=== PATIENT | female | born 1960 | race Caucasian/White ===

== ENCOUNTER 2022-08-12 18:12 | Emergency (ER) | payer OTHER, SELFPAY ==
--- NOTE | ~2022-08-12 | XR_ITS ---
EXAMINATION: XR abdomen/kub 1V DATE: 08/12/2022 18:59 INDICATION: Diffuse lower abdominal pain TECHNIQUE: A supine view of the abdomen was obtained. COMPARISON: None. FINDINGS: Moderate amount of gas in the stomach and small amount of gas scattered throughout the colon. No dila rebeka gas-filled loops of bowel to suggest obstruction. No evident urolithiasis. Moderate to severe low er lumbar facet osteoarthritis. Sclerotic likely bone island at the right femoral neck. IMPRESSION: 1. Normal bowel gas pattern. Reviewed, dictated and finalized at location A. [employer]
[2022-08-12 18:27] VITALS: BP 143/96; PULSE 87; RESP 24; TEMP 36.1; O2SAT 100
[2022-08-12] MEDS: ONDANSETRON HCL ODT 4 MG TABLET PO (18:41)
--- NOTE | 2022-08-12 18:48 | ED.NAVMDI ---
HPI - Nausea/Vomiting/Diarrhea General Chief complaint: Nausea/Vomiting/Diarrhea Stated complaint: Abdominal Pain Time Seen by Provider: 08/12/22 19:10 Source: patient and RN notes reviewed Mode of arrival: ambulatory Limitations: no limitations History of Present Illness HPI Narrative: 62-year-old female presenting for complaint of nausea, vomiting and abdominal pain; onset today. Endorses abdominal pain is across the middle of the abdomen and to the lower back. She endorses bloating, nausea and decreased appetite for few days. about 5 days ago she had watery diarrhea and then has had small firm stools since then. She states yesterday she fell her abdomen tightness. She denies fever, shortness of breath or chest pain. She has taken Pepto-Bismol, Zantac, and Gas-X for symptoms. She has a history of reflux, hypertension and depression. She denies any abdominal surgeries. She drinks at least half a bottle of white wine per day. Related Data Home Medications Medication Instructions Recorded Confirmed amlodipine 5 mg tablet 5 mg PO DAILY 08/12/22 08/12/22 lisinopril 10 mg tablet 10 mg PO DAILY 08/12/22 08/12/22 progesterone micronized 200 mg 200 mg PO DAILY 08/12/22 08/12/22 capsule venlafaxine 75 mg capsule,extended 75 mg PO DAILY 08/12/22 08/12/22 release 24 hr Allergies Allergy/AdvReac Type Severity Reaction Status Date / Time No Known Allergies Allergy Verified 08/12/22 18:20 Review of Systems Review of Systems: CONSTITUTIONAL: Denies body aches, fever, chills ENT: Denies rhinorrhea, congestion CARDIOVASCULAR: Denies chest pain, palpitations, or edema. RESPIRATORY: Denies cough or dyspnea. GASTROINTESTINAL: Endorses abdominal pain, nausea, vomiting Denies hematochezia, melena, hematemesis GENITOURINARY: Denies dysuria, hematuria, or CVA tenderness. SKIN: Denies rash, itching, or wounds. MUSCULOSKELETAL: Denies back pain, joint pain, or myalgia. NEUROLOGIC: Denies headache, numbness, tingling, or weakness. All systems reviewed & are unremarkable except as noted in HPI and below PMFSH Comments At time of signature, I have reviewed and agree with nursing past medical, surgical, social and family history unless otherwise noted. Please see nursing chart for further information. There is no relevant family history pertinent to the presenting complaint Exam Narrative: GENERAL: ill-appearing, no acute distress. EYES: EOMI. Conjunctivae normal. ENT: Mucous membranes pink and moist. CHEST: Clear to auscultation. HEART: Regular rate and rhythm. No murmur appreciated. Normal peripheral pulses. ABDOMEN: abd soft, nondistended, normal active bowel sounds. Generalized tender abdomen; No guarding, rebound tenderness, asymmetry EXTREMITIES: Normal range of motion. No edema. SKIN: Warm, dry, no rash. Capillary refill normal. Normal skin turgor. NEURO: Alert and oriented x3. Course Course Emergency Course: Patient is aware of diagnosis, understands and agrees to treatment plan. Anticipatory guidance given. Portions of this record may have been created with voice recognition software Level of Care: Express Care Visit Vital Signs Vital signs: Vital Signs Temperature 96.9 F L 08/12/22 18:27 Pulse Rate 87 08/12/22 18:27 Respiratory Rate 24 H 08/12/22 18:27 Blood Pressure 143/96 H 08/12/22 18:27 Pulse Oximetry 100 08/12/22 18:27 Oxygen Delivery Room Air 08/12/22 18:27 Temperature 96.9 F L 08/12/22 18:27 Pulse Rate 87 08/12/22 18:27 Respiratory Rate 24 H 08/12/22 18:27 Blood Pressure 143/96 H 08/12/22 18:27 Pulse Oximetry 100 08/12/22 18:27 Oxygen Delivery Room Air 08/12/22 18:27 Transfer Transfered to: [place] Transportation: Other (private vehicle) Transfer rationale: Pt is agreeable to transfer. Requests transfer to [facility] via private vehicle. Risks of transportation reviewed with pt including injury, worsening of condition and d
== END 2022-08-12 19:40 | disposition short-term general hospital (02) ==
PROVIDERS: Emergency Provider Nurse Practitioner Family
DX: R10.30 Lower abdominal pain, unspecified (principal); I10 Essential (primary) hypertension; F41.9 Anxiety disorder, unspecified; F32.A Depression, unspecified
CPT/HCPCS: 74018; 87804; 99213; A9270; G0463

== ENCOUNTER 2022-08-12 20:01 | Observation (INO) | payer OTHER, SELFPAY ==
[2022-08-12] VITALS (9 sets, daily range): BP systolic 149–161; BP diastolic 88–92; PULSE 88; RESP 22; O2SAT 96–100
--- NOTE | ~2022-08-12 | CT_ITS ---
EXAMINATION: CT abdomen pelvis w con INDICATION: Low abdominal pain, leukocytosis TECHNIQUE: Computed tomographic images of the abdomen and pelvis were obtained after the administrati on of 100 cc of Omnipaque 350 intravenous contrast. The dose-length product (DLP) was 210.75 mGy-cm. Automated exposure control and iterative reconstruction technique were employed. COMPARISON: None available FINDINGS: The lung bases are clear. The heart size is normal. There is a small sliding hiatal hernia. There is focal fatty infiltration of the liver near the ligamentum teres. There is a 6 mm cyst of th e right hepatic lobe. The spleen, pancreas, gallbladder, and adrenal glands are normal. The kidneys a re unremarkable. There are appendicoliths in the dilated appendix which measures up to 1.5 cm. There is edematous stranding of the periappendiceal fat without evidence of perforation or abscess. No path ologically enlarged abdominal or pelvic lymph nodes are identified. There is no free intraperitoneal gas or evidence of bowel obstruction. There is severe lumbar spondylosis at L5-S1. IMPRESSION: 1. Acute appendicitis without perforation or abscess. Reviewed, dictated and finalized at location A. [employer]
[2022-08-12 20:25] LABS: Basophils Absolute Auto 0.1 K/mm3 (0.0-0.1); Basophils Percent Auto 0.5 % (0.2-1.2); Hematocrit 42.5 % (37.0-47.0); Hemoglobin 14.7 g/dL (12.0-15.0); Immature Granulocyte Absolute 0.11 K/mm3 (0.00-0.031); Immature Granulocyte Percent A 0.6 % (0-0.5); Lymphocytes Absolute Auto 0.77 K/mm3 (0.9-3.2); Lymphocytes Percent Auto 4.2 % (18.3-44.2); Mean Corpuscular HGB Conc 34.6 g/dl (32-36); Mean Corpuscular Hemoglobin 33.8 pg (26-34); Mean Corpuscular Volume 97.7 fl (80-100); Mean Platelet Volume 9.9 fl (7.4-10.4); Monocytes Percent Auto 10.7 % (2.6-8.5); Neutrophils Absolute Auto 15.5 K/mm3 (1.3-6.7); Platelet Count Result 247 k/mm3 (150-375); Red Blood Count 4.35 M/mm3 (4.2-5.4); Red Cell Distribution Width 12.7 % (11.5-14.5); White Blood Count 18.4 K/mm3 (4.5-10.0)
[2022-08-12 20:38] LABS: Alanine Aminotransferase 23 U/L (6-35); Albumin Level 4.5 g/dL (3.5-5.1); Alkaline Phosphatase 51 U/L (38-126); Anion Gap 11 mmol/L (8-16); Aspartate Amino Transferase 36 U/L (14-36); Bilirubin,Total 0.9 mg/dL (0.2-1.3); Blood Urea Nitrogen 11 mg/dL (7-17); Calcium 8.8 mg/dL (8.4-10.2); Carbon Dioxide 21 mmol/L (22-30); Chloride 96 mmol/L (98-107); Estimated CRCL calculation 67 ml/min; Estimated Glomerular Filt Rate > 60; Glucose 131 mg/dL (65-110); Lipase 40 U/L (23-300); Potassium 4.2 mmol/L (3.4-5.0); Sodium 128 mmol/L (137-145)
[2022-08-12 22:23] LABS: Add Urine Microscopic? YES; Appearance Urine Clear (Clear); Bilirubin Urine Negative (Negative); Blood Urine 2+ (Negative); Color Urine Light Yellow (Yellow); Glucose Urine UA Negative (Negative); Ketones Urine 3+ mg/dL (Negative); Leukocyte Esterase Ur Negative LEU/UL (Negative); Nitrate Urine Negative (Negative); Protein Urine Negative (Negative); Specific Grav Ur 1.025 (1.001-1.035); Urobilinogen Urine 0.2 mg/dL (<2.0)
[2022-08-13] VITALS (28 sets, daily range): BP systolic 107–150; BP diastolic 57–95; PULSE 73–103; RESP 9–18; TEMP 36.8–37.5; O2SAT 94–100; BMI 22.6
[2022-08-13] MEDS: MORPHINE SULFATE (*CRX) 4 MG/ML INJ IV PUSH ×3 (00:05→07:39)
--- NOTE | 2022-08-13 00:10 | ED.ABDPAIN ---
HPI - Abdominal Pain General Chief Complaint: Abdominal Pain Stated Complaint: abd pain/ also her back Time Seen by Provider: 08/12/22 23:21 History of Present Illness HPI narrative: Patient is a 62-year-old female who presents ER with abdominal pain as well as back pain. Ongoing since 08/11/2022. Aching diffuse pain that began epigastrium. Unsure if it is radiating into her back but she has discomfort with movement. She reports chronic diarrhea. Feels like she needs to the bathroom but cannot. No belching/nausea/vomiting. No history of bowel obstruction. She said chest pain or chest pressure. No improvement with home ibuprofen. Related Data Home Medications Medication Instructions Recorded Confirmed amlodipine 5 mg tablet 5 mg PO DAILY 08/12/22 08/12/22 lisinopril 10 mg tablet 10 mg PO DAILY 08/12/22 08/12/22 progesterone micronized 200 mg 200 mg PO DAILY 08/12/22 08/12/22 capsule venlafaxine 75 mg capsule,extended 75 mg PO DAILY 08/12/22 08/12/22 release 24 hr Allergies Allergy/AdvReac Type Severity Reaction Status Date / Time No Known Allergies Allergy Verified 08/12/22 18:20 Review of Systems Review of Systems: All systems reviewed & are unremarkable except as noted in HPI and below Constitutional: Constitutional: Denies chills, Denies fatigue and Denies fever(s) ENT: Denies nasal congestion and Denies sore throat Cardiovascular: Cardiovascular: Denies chest pain, Denies rapid heart rate and Denies radiating jaw, neck or arm pain Respiratory: Respiratory: Denies cough and Denies dyspnea Gastrointestinal: Gastrointestinal: Reports abdominal pain, Reports diarrhea (Chronic), Denies nausea and Denies vomiting Genitourinary: Genitourinary: Denies hematuria, Denies dysuria and Denies flank pain Musculoskeletal: Musculoskeletal: Reports back pain, Denies myalgias and Denies arthralgias [facility] Past Medical History Medical History (Updated 08/13/22 @ 00:13 by Enrique Charles MD) Hypertension Surgical History Surgical History (Updated 08/13/22 @ 00:13 by Enrique Charles MD) No pertinent past surgical history Social History Social History (Updated 08/13/22 @ 00:14 by Enrique Charles MD) Smoking status: Never smoker Exam Narrative: GENERAL: Uncomfortable appearing, well-nourished, and in no acute distress. HEAD: Normocephalic, atraumatic. EYES: PERRL and EOMI. CHEST: Clear to auscultation. No respiratory distress. HEART: Regular rate and rhythm. Normal peripheral pulses. ABDOMEN: Soft, mild diffuse discomfort without rebound or guarding, nondistended. EXTREMITIES: Normal range of motion. No edema. SKIN: Warm, dry, no rash. NEURO: Alert and oriented x3. PSYCH: Normal mood and affect. Course Course Emergency Course: Discussed case with general surgery related admit to their service. Patient receiving Zosyn and morphine. Vital Signs Vital signs: Vital Signs Pulse Rate 88 08/12/22 20:14 Respiratory Rate 22 H 08/12/22 20:14 Blood Pressure 149/91 H 08/12/22 20:14 Pulse Oximetry 100 08/12/22 20:14 Pulse Rate 88 08/12/22 20:14 Respiratory Rate 22 H 08/12/22 20:14 Blood Pressure 149/91 H 08/12/22 20:14 Pulse Oximetry 100 08/12/22 20:14 MDM - Abdominal Pain Lab Data 08/12/22 20:17 08/12/22 20:17 Labs: Lab Results 08/12/22 08/12/22 08/12/22 Range/Units 20:17 20:17 22:17 WBC 18.4 H (4.5-10.0) K/mm3 RBC 4.35 (4.2-5.4) M/mm3 Hgb 14.7 (12.0-15.0) g/dL Hct 42.5 (37.0-47.0) % MCV 97.7 (80-100) fl MCH 33.8 (26-34) pg MCHC 34.6 (32-36) g/dl RDW 12.7 (11.5-14.5) % Plt Count 247 (150-375) k/mm3 MPV 9.9 (7.4-10.4) fl Immature Gran % (Auto) 0.6 H (0-0.5) % Neut % (Auto) 84.0 H (45.5-73.1) % Lymph % (Auto) 4.2 L (18.3-44.2) % [place] % (Auto) 10.7 H (2.6-8.5) % Eos % (Auto) 0.0 (0-4.4) % Baso % (Auto) 0.5 (0.2-1.2) % Lymph # (Auto)
[2022-08-13] MEDS: SODIUM CHLORIDE 0.9% IV 1,000 ML 125 ML IV CONT ×2 (01:42→05:19)
[2022-08-13] MEDS: ONDANSETRON INJ 4 MG/2 ML VIAL IV PUSH (01:50)
[2022-08-13 03:16] LABS: Influenza A QL RT-PCR Negative (Negative); Influenza B QL RT-PCR Negative (Negative); SARS-CoV-2 RNA PCR Negative
--- NOTE | 2022-08-13 04:30 | PC.NURSE ---
Patient arrived on 3 Med-Surg on 04:30
--- NOTE | 2022-08-13 08:33 | WPDANESEPP ---
Anes - Eval Pre Procedure Procedure: Operation Date: 08/13/22 09:00 Proposed Procedures p Laparoscopic Appendectomy - Lucretia Tavarez MD Date/Time: 08/13/22 08:33 Surgeon: kika Pre Op Diagnosis: Appendicitis Patient Data Age: 62 Gender: F Height: 1.57 m Weight: 56 kg Last Vital Signs Temp 36.8 C 08/13/22 04:01 Pulse 84 08/13/22 04:01 Resp 18 08/13/22 04:01 BP 128/74 08/13/22 04:01 Pulse Ox 97 08/13/22 04:01 O2 Del Method Room Air 08/13/22 04:30 Allergies Allergy/AdvReac Type Severity Reaction Status Date / Time No Known Allergies Allergy Verified 08/13/22 04:34 Home Medications Medication Instructions Recorded Confirmed Type amlodipine 5 mg tablet 5 mg PO DAILY 08/12/22 08/13/22 History lisinopril 10 mg tablet 10 mg PO DAILY 08/12/22 08/13/22 History progesterone micronized 200 mg 200 mg PO DAILY 08/12/22 08/13/22 History capsule venlafaxine 75 mg capsule,extended 75 mg PO DAILY 08/12/22 08/13/22 History release 24 hr Laboratory Tests 08/12/22 08/12/22 08/12/22 20:17 20:17 22:17 WBC 18.4 K/mm3 H K/mm3 (4.5-10.0) RBC 4.35 M/mm3 M/mm3 (4.2-5.4) Hgb 14.7 g/dL g/dL (12.0-15.0) Hct 42.5 % % (37.0-47.0) MCV 97.7 fl fl (80-100) MCH 33.8 pg pg (26-34) MCHC 34.6 g/dl g/dl (32-36) RDW 12.7 % % (11.5-14.5) Plt Count 247 k/mm3 k/mm3 (150-375) MPV 9.9 fl fl (7.4-10.4) Immature Gran % (Auto) 0.6 % H % (0-0.5) Neut % (Auto) 84.0 % H % (45.5-73.1) Lymph % (Auto) 4.2 % L % (18.3-44.2) Armstrong % (Auto) 10.7 % H % (2.6-8.5) Eos % (Auto) 0.0 % % (0-4.4) Baso % (Auto) 0.5 % % (0.2-1.2) Lymph # (Auto) 0.77 K/mm3 L K/mm3 (0.9-3.2) Armstrong # (Auto) 2.0 K/mm3 H K/mm3 (0.1-0.6) Eos # (Auto) 0.0 K/mm3 K/mm3 (0-0.3) Baso # (Auto) 0.1 K/mm3 K/mm3 (0.0-0.1) Abs Immat Gran (auto) 0.11 K/mm3 H K/mm3 (0.00-0.031) Absolute Neuts (auto) 15.5 K/mm3 H K/mm3 (1.3-6.7) Absolute Nucleated RBC 0.0 K/mm3 K/mm3 (0.0-0.012) Nucleated RBC % 0.0 % % (0.0-0.2) Sodium 128 mmol/L L mmol/L (137-145) Potassium 4.2 mmol/L mmol/L (3.4-5.0) Chloride 96 mmol/L L mmol/L (98-107) Carbon Dioxide 21 mmol/L L mmol/L (22-30) Anion Gap 11 mmol/L mmol/L (8-16) BUN 11 mg/dL mg/dL (7-17) Creatinine 0.60 mg/dL L mg/dL (0.7-1.0) Estim Creat Clear Calc 67 ml/min ml/min Estimated GFR > 60 (59 - ) Glucose 131 mg/dL H mg/dL (65-110) Calcium 8.8 mg/dL mg/dL (8.4-10.2) Total Bilirubin 0.9 mg/dL mg/dL (0.2-1.3) AST 36 U/L U/L (14-36) ALT 23 U/L U/L (6-35) Alkaline Phosphatase 51 U/L U/L (38-126) Total Protein 8.0 g/dL g/dL (6.3-8.2) Albumin 4.5 g/dL g/dL (3.5-5.1) Lipase 40 U/L U/L (23-300) Urine Color Light yellow (Yellow) Urine Appearance Clear (Clear) Urine pH 6.0 (5.0-9.0) Ur Specific [place] 1.025 (1.001-1.035) Urine Protein Negative mg/dL mg/dL (Negative) Urine Glucose (UA) Negative mg/dL mg/dL (Negative) Urine Ketones 3+ mg/dL H mg/dL (Negative) Ur Blood (Man) 2+ H (Negative) Urine Nitrate Negative (Negative) Urine Bilirubin Negative (Negative) Urine Urobilinogen 0.2 mg/dL mg/dL (<2.0) Leukocyte Esterase Rfl Negative EVE/UL EVE/UL (Negative) Influenza A (RT-PCR) Influenza B (RT-PCR) SARS-CoV-2 RNA (RT-PCR) 08/13/22 02:26 WBC RBC Hgb Hct MCV MCH MCHC RDW Plt Count MPV Immature Gra
--- NOTE | 2022-08-13 08:45 | PC.NURSE ---
To OR per bed, IV right hand. Report given to Jenniffer MCDERMOTT.
--- NOTE | 2022-08-13 08:52 | PM.IMHP ---
H&P: HPI History of Present Illness Date/Time: 08/13/22 08:52 Chief Complaint: 62 y/o F presenting to ED c/o severe lower abd pain over last few days. Pt reports pain initially diffuse but now localized to RLQ. Pt reports pain is constant and sharp. Pt reports it is worse c movt. Pt reports associated anorexia, nausea. Pt denies previous episodes. Review of Systems Constitutional: Constitutional: Reports as per HPI, Reports anorexia, Denies chills, Reports fatigue, Denies fever(s), Reports lethargy, Reports malaise, Reports poor appetite, Reports weakness, Denies weight gain and Denies weight loss Eyes: Eyes: Reports no additional eye complaints ENT: Reports system reviewed and no additional complaints, except as documented Cardiovascular: Cardiovascular: Reports no additional cardiovascular complaints Respiratory: Respiratory: Reports no additional respiratory complaints Gastrointestinal: Gastrointestinal: Reports as per HPI, Reports abdominal pain, Reports bloating, Reports GI cramping, Reports nausea, Denies vomiting and Denies hematemesis Genitourinary: Genitourinary: Reports no additional female genitourinary complaints Musculoskeletal: Musculoskeletal: Reports no additional musculoskeletal complaints Integumentary/Breasts: Skin/Breast: Reports system reviewed and no additional complaints, except as docu Neurologic: Reports system reviewed and no additional complaints, except as documented Psychiatric: Psychiatric: Reports no additional psychiatric complaints Endocrine: Endocrine: Reports no additional endocrine complaints Hematologic/Lymphatic: Hematologic/Lymphatic: Reports no additional hematologic/lymphatic complaints Allergic/Immunologic: Allergic/Immunologic: Reports no additional allergic/immunologic complaints [facility] Past Medical History Medical History Hypertension Surgical History Surgical History No pertinent past surgical history Family History Family History Mother Hypertension Cerebrovascular accident Grandparent Hypertension Grandparent Heart disease Social History Social History Smoking packs per day: 0.5 Smoking cigarettes per day: 10.0 Smoking status: Former smoker Tobacco type: cigarettes Smoking end date: 08/10/99 Alcohol intake: current Drinks per week: 7 Substance use: current Substance use type: other Other substance usage details: GREG Arellano.Pb Lack of Transportation: No Lack of Food: Never True Current Housing: I Have Housing Concerned About Future Housing: No Difficulty Paying Gas/Electric Bills: No Difficulty Paying for Meds: No Currently Unemployed: No Education: Master's Degree or Higher Difficulty w/ Childcare or Family Care: No Spiritual care concerns: No Meds Home Medications and Allergies Home Medications Medication Instructions Recorded Confirmed Type amlodipine 5 mg tablet 5 mg PO DAILY 08/12/22 08/13/22 History lisinopril 10 mg tablet 10 mg PO DAILY 08/12/22 08/13/22 History progesterone micronized 200 mg 200 mg PO DAILY 08/12/22 08/13/22 History capsule venlafaxine 75 mg capsule,extended 75 mg PO DAILY 08/12/22 08/13/22 History release 24 hr Allergies Allergy/AdvReac Type Severity Reaction Status Date / Time No Known Allergies Allergy Verified 08/13/22 04:34 Vital Signs Vital Signs - 24 hr 08/12/22 20:14 08/12/22 22:56 08/12/22 22:57 Temperature Pulse Rate 88 Respiratory Rate 22 H Blood Pressure 149/91 H 161/88 H Pulse Oximetry 100 100 100 Oxygen Delivery 08/12/22 23:00 08/12/22 23:01 08/12/22 23:19 Temperature Pulse Rate Respiratory Rate Blood Pressure 154/90 H Pulse Oximetry 97 99 99 Oxygen Delivery 08/12/22 23:30 08/12
--- NOTE | 2022-08-13 08:59 | WPDHPUPDATE1 ---
History and Physical Update Update Date/Time: 08/13/22 08:59 History and Physical has been reviewed, including an updated exam of the patient. There are NO changes in the patient's condition. Risks, benefits, and alternatives have been discussed and questions answered. Patient agrees to proceed with procedure.
[2022-08-13] MEDS: LACTATED RINGERS 1,000 ML 30 ML IV CONT (09:00)
[2022-08-13] MEDS: BUPIVACAINE/EPINEPHRINE 0.5% 10 ML VIAL 30 ML INFILTRATE (09:21)
--- NOTE | 2022-08-13 09:25 | P.PNAN_ITS ---
Anes - Eval Final PreProcedure Day of Procedure 08/13/22 09:25 Patient weight: normal Heart: regular rate and rhythm Lungs: clear to auscultation and normal air movement Airway: Mallampati scale class II Neurological: alert and oriented Last oral intake: >/= 8 hours ASA classification: II Emergent: no Anesthetic plan: proceed Anesthesia type and monitoring: general ETT Results Review: All pre-operative results and documents have been reviewed as part of the pre- operative evaluation. Informed Consent: The patient's anesthetic plan and its attendant risks and benefits were discussed with the patient/family/POA. Questions were solicited and answers provided to the satisfaction of the patient/family/POA.
--- NOTE | 2022-08-13 09:41 | W.PM.PROC2 ---
Procedure Note - Detailed Date of Procedure 08/13/22 Pre-op Diagnosis Appendicitis Post-op Diagnosis Same Procedure Performed laparoscopic appendectomy Surgeon Lucretia Tavarez MD Anesthesia General Indications 62 y/o F presenting to ED c acute appendicitis Findings acute appendicitis no evidence of perforation Description of Procedure The patient was taken to the operating room and placed in the supine position. After adequate induction of general anesthesia, the patient was prepped and draped in the normal sterile fashion. A time-out was then done to verify the patient's identity, as well as the procedure being performed. I began by making a 5 mm incision in the infraumbilical region, through this a Veress needle was placed in the peritoneal cavity. CO2 gas was then insufflated and after adequate pneumoperitoneum was achieved the Veress needle was removed. Then placed a 5 mm Optiview trocar under direct visualization into the peritoneal cavity. I then insufflated through this trocar site and the endoscope was placed into the trocar. Under direct visualization, placed 2 further 5 mm suprapubic port as well as an additional 12 mm port in the left lower abdomen. There was some adhesions to the right lateral sidewall that was taken down both bluntly and sharply. At this point I identified the cecum, I retracted the cecum both medially and superiorly allowing me to expose the appendix. The appendix was noted to be very dilated and inflamed. The appendix was noted to be very adherent to the right lateral sidewall as well as the ileum. I was able to bluntly dissect the appendix from these adhesions. I then was able to locate the base of the appendix with the cecum. I created a window with the [place] dissector between the appendix itself and the mesoappendix. I then transected the mesoappendix with a white vascular staple load. The Endo-MARK was then reloaded with a blue staple load and I transected the base of the appendix. Once the specimen was completely detached, an endo-pouch was placed into the 12 mm port site and the specimen was removed through the endo-pouch. The appendiceal specimen will be sent to pathology for further review. I then copiously irrigated the right lower quadrant. Hemostasis was noted at both staple lines no other pathology was seen in this area. I then moved the camera to the suprapubic port to check our its port of entry. No iatrogenic injury or other pathology was noted in the upper abdomen. I then closed the 12 mm port site with a Seamus code and 0 Vicryl suture under direct visualization. At this point, the abdomen was desufflated and all ports were removed. All port sites were closed with 4 Monocryl subcuticular suture. Dermabond was placed on all wounds. The patient tolerated the procedure well and was extubated in the operating room postop. She will be sent to the recovery room in stable condition. Estimated Blood Loss 10 Drains No Packing No Pathology Yes Complications No immediate complications Condition Stable Disposition PACU [facility] Billing Surgery - Charge Forward: Surgery Billing
--- NOTE | 2022-08-13 11:00 | PC.NURSE ---
Returned from OR per Bed. Report received from Rafael MCDERMOTT.
[2022-08-13] MEDS: VENLAFAXINE HCL XR 75 MG CAP.ER.24H PO (12:23)
[2022-08-13] MEDS: lisinopriL 10 MG TABLET PO (12:23)
[2022-08-13] MEDS: amLODIPine BESYLATE 5 MG TABLET PO (12:23)
--- NOTE | 2022-08-13 14:06 | PC.NURSE ---
Pt. tolerated clear liquid diet, insistent on d/c at this time, denies pain, no n/v up ambulating independently since procedure
--- NOTE | 2022-08-15 09:32 | PM.DS ---
DS: Admitting Diagnosis Discharge Date 08/13/22 Admitting Diagnosis Acute appendicitis DS: Discharge Diagnosis Discharge Diagnosis (1) Appendicitis: Code(s): K37 - Unspecified appendicitis Status: Acute Assessment and Plan: status post laparoscopic appendectomy, continue routine postoperative care, home with p.o. analgesia and Colace, follow-up 2 weeks DS: Summary Hospital Course Reason for hospitalization: Acute appendicitis Hospital Course: The patient is a 62-year-old female presenting to the emergency department complaining of severe lower abdominal pain. Workup in the emergency department, including imaging, was significant for acute appendicitis. The patient was subsequently admitted to my service, made NPO, and started on IV antibiotics. Upon evaluation, the decision was made for urgent appendectomy. The patient was taken to the operating room and laparoscopic appendectomy was performed, please see full operative report for details of that procedure. Postoperatively the patient did well and was transferred back to the surgical floor. A few hours after surgery she was up and ambulating without difficulty and her pain was controlled p.o. analgesia. Additionally, she was able to tolerate a bland diet without issue. She will be discharged home at this time with p.o. analgesia and Colace. She will follow-up with me in 2 weeks. Status at Discharge Functional status at discharge: independent ambulation Overall status at discharge: patient is progressing back to baseline Time Spent with Patient Time attestation: Total time spent providing and/or coordinating discharge services: Exam Const: General: cooperative, comfortable and no acute distress Resp: Auscultation: clear to auscultation bilaterally Cardio: Rate: regular rate Rhythm: regular rhythm GI: Inspection: normal to inspection, distended and incision GI Palp: Yes abdominal tenderness, Yes Soft to palpation, Yes Tenderness to palpation present (GI), No Guarding due to palpation present (GI) and No Rigid due to palpation DS: Data Data Completed and Pending Pending studies at discharge: Pending at discharge 08/13/22 09:17 Surgical [PTH] Routine Discharge Plan Discharge Attending physician on discharge: Lucretia Tavarez Consulting providers: Rodney Guo ; Gucci Kaye ; Waldo Franco Discharging Clinician: Lucretia Tavarez Anticipated Discharge Date/Time: 08/13/22 14:00 Patient Disposition: Home, Self-Care Activity: other - see discharge instructions Diet: other - see discharge instructions Wound Care Instructions: other - see discharge instructions Discharge Instructions: DISCHARGE INSTRUCTION SHEET FOR HERNIA, GALLBLADDER AND APPENDIX SURGERIES DR. TAVAREZ PATIENT TO TAKE HOME 1. May shower in 24 hours, no soaking in bath x 2weeks. 2. Call office for: Wound increasingly painful or bleeding Vomiting Fever of greater than 101 degrees 3. If no bowel movement for three days, take 1 oz. (30 ml) Milk of Magnesia or MiraLax 17g 1 to 2 times daily. 4. No heavy lifting > 10-15 pounds x 6 weeks for hernia repairs and 2 weeks for laparoscopic cholecystectomy or appendectomy. 5. No driving for 3 days or while taking narcotic pain medications. 6. Ice to surgical site for 48 hours (30 min on, then 30 min off). 7. Up walking 10-30 minutes three times per day. 8. Resume previous home medications. 9. Follow-up 10-14 days in office for wound check or as previously scheduled. ([phone]) 10. Oral pain medications prescription to be sent to pharmacy. Take Tylenol 500mg every 6 hours and Ibuprofen 600mg every 6 hours for the first 2 days, then as needed. 11. NUTRITION: Start out by drinking fluids and increase your diet as tolerated. If you experience nausea, try dry toast, crackers, and 7-UP. If nausea or vomiting persists, contact your
== END 2022-08-13 14:15 | disposition home or self-care (01) ==
LOC: ANHED 08-13 00:11 → ANH3MEDSUR 08-13 03:31
PROVIDERS: Admitting Provider Surgery; Emergency Provider Emergency Medicine; Visit Provider Surgery
PROC: 0DTJ4ZZ Resection of Appendix, Percutaneous Endoscopic Approach (ICD-10-PCS; CPT 44970; principal; 2022-08-13 09:00)
DX: K35.80 Unspecified acute appendicitis (principal); R19.7 Diarrhea, unspecified; R07.9 Chest pain, unspecified; Z20.822 Contact with and (suspected) exposure to COVID-19; F10.90 Alcohol use, unspecified, uncomplicated; F12.90 Cannabis use, unspecified, uncomplicated; Z87.891 Personal history of nicotine dependence; Z79.899 Other long term (current) drug therapy
CPT/HCPCS: 44970; 36415; 74177; 80053; 81001; 83690; 85025; 87636; 88304; 96365; 96375; 96376; 99285; A9270; G0378; J0330; J1100; J2270; J2405; J2543; J2704; J3010; J7030; J7120; Q9967